=== PATIENT | male | born 1985 | race Caucasian/White ===

== ENCOUNTER 2025-04-11 09:13 | Emergency (ER) | payer MEDICAID ==
[~2025-04-11] VITALS: Ht 167.6 cm; Wt 65.0 kg
[2025-04-11 09:18] VITALS: O2SAT 98
[2025-04-11] MEDS ORDERED: DEXAMETHASONE 1 MG/ML ORAL SYR PO ONE (11:15)
[2025-04-11] MEDS: DEXAMETHASONE 4MG TABLET PO SCH (12:11)
[2025-04-11] MEDS: IBUPROFEN 600MG TABLET PO ONE (12:11)
[2025-04-11 13:13] LABS: INFLUENZA TYPE A Presumptive Negative (Pres. Neg.)
[2025-04-11 13:14] LABS: INFLUENZA TYPE B Presumptive Negative (Pres. Neg.); RESPIRATORY SYNCYTIAL VIRUS Not Detected (Not Detectd)
[2025-04-11 13:40] VITALS: BP 118/75; PULSE 62; RESP 18; TEMP 36.8; O2SAT 98
== END 2025-04-11 13:53 | disposition home or self-care (01) ==
LOC: ER 09:13
DX: J06.9 Acute upper respiratory infection, unspecified (principal); B97.89 Other viral agents as the cause of diseases classified elsewhere; J45.909 Unspecified asthma, uncomplicated; Z20.822 Contact with and (suspected) exposure to COVID-19
CPT/HCPCS: 99284; 71045; 87426; 87420; 87804 ×2; J8540